=== PATIENT | male | born 2000 | race Caucasian/White ===

== ENCOUNTER 2020-11-06 21:57 | Emergency (ER) | payer OTHER ==
[2020-11-06 22:30] VITALS: BP 122/69; PULSE 85; RESP 18; TEMP 99
[2020-11-06] MEDS ORDERED: KETOROLAC 15 MG/ML 1 ML VIAL IM STA (23:06)
--- NOTE | 2020-11-06 23:17 | XR ---
EXAMINATION TYPE: XR ankle complete RT DATE OF EXAM: 11/06/2020 COMPARISON: NONE HISTORY: Ankle pain TECHNIQUE: 3 views FINDINGS: There is soft tissue swelling over the lateral malleolus. Ankle mortise is anatomic. I see no fracture. IMPRESSION: Soft tissue swelling. No fracture seen.
--- NOTE | 2020-11-06 23:27 | ED ---
Lower Extremity Injury HPI - General Chief Complaint: Extremity Injury, Lower Stated Complaint: RT ankle injury Time Seen by Provider: 11/06/20 22:37 Source: patient, RN notes reviewed Mode of arrival: wheelchair Limitations: no limitations - History of Present Illness Initial Comments: Patient is a 19-year-old male that presents to the emergency department complaining of right ankle pain. He notes that he stepped on his friend's foot and rolled his ankle. He notes that his pain is approximately a 7 out of 10. He notes that he does have full sensation and feeling in his right lower extremity. He notes that most of his pain is on the lateral aspect over the lateral malleoli. He denied any other issues or complaints at this time. Patient denied any chest pain shortness breath headache nausea vomiting diarrhea constipation fever fatigue chills. - Related Data Home Medications Medication Instructions Recorded Confirmed No Known Home Medications 01/24/15 01/24/15 Allergies Allergy/AdvReac Type Severity Reaction Status Date / Time No Known Allergies Allergy Verified 11/06/20 22:31 Review of Systems ROS Statement: Those systems with pertinent positive or pertinent negative responses have been documented in the HPI. ROS Other: All systems not noted in ROS Statement are negative. Past Medical History Past Medical History: No Reported History History of Any Multi-Drug Resistant Organisms: None Reported Past Surgical History: No Surgical Hx Reported Past Psychological History: No Psychological Hx Reported Smoking Status: Never smoker Past Alcohol Use History: None Reported Past Drug Use History: None Reported General Exam Limitations: no limitations General appearance: alert, in no apparent distress Head exam: Present: atraumatic, normocephalic, normal inspection Eye exam: Present: normal appearance, PERRL, EOMI. Absent: scleral icterus, conjunctival injection, periorbital swelling Neck exam: Present: normal inspection Respiratory exam: Present: normal lung sounds bilaterally. Absent: respiratory distress, wheezes, rales, rhonchi, stridor Cardiovascular Exam: Present: regular rate, normal rhythm, normal heart sounds. Absent: systolic murmur, diastolic murmur, rubs, gallop, clicks Right Ankle exam: Present: normal inspection, tenderness (Over the lateral malleoli and just superior the lateral malleoli.), swelling (Lateral malleoli), ecchymosis (Along the lateral aspect of the foot). Absent: full ROM (Secondary to pain), abrasion, laceration Neurological exam: Present: alert, oriented X3 Psychiatric exam: Present: normal affect, normal mood Skin exam: Present: warm, dry, intact, normal color. Absent: rash Course Vital Signs 11/06/20 22:26 Temperature 99.0 F Pulse Rate 85 Respiratory 18 Rate Blood Pressure 122/69 O2 Sat by Pulse 100 Oximetry Procedures - Orthopedic Splinting/Casting Injury #1 Side: right Lower Extremity Injury Location: ankle Lower Extremity Immobilizer: posterior splint, Leo wrap, synthetic pre-padded splint Other Orthopedic Equipment: crutches Medical Decision Making - Medical Decision Making 19-year-old male with right ankle pain after stepping on his friend's foot. X-ray the right ankle, 15 mg of Toradol ordered. X-ray negative for any acute fractures or dislocations. Case discussed with Dr. Haney, patient can discharge home with follow-up to orthopedist. - Radiology Data Radiology results: report reviewed, image reviewed X-ray of the right ankle: Soft tissue swelling, no fracture seen. Disposition Clinical Impression: Right ankle sprain Disposition: HOME SELF-CARE Condition: Stable Instructions (If sedation given, give patient instructions): Knee Sprain (ED) Additional Instructions: Please return to the Emergency Department if symptoms worsen or any other concerns. Follow-up with primary care as needed. Follow-up with orthopedist in the next several days Avoid any strenuous use and/or weightbearing of the right ankle. Take Tylenol and Motrin as needed for pain control. Is patient prescribed a controlled substance at d/c from ED?: No Referrals: None,Stated [Primary Care Provider] - 1-2 days Time of Disposition: 23:26
--- NOTE | 2020-11-06 23:40 | ED ---
Disposition Clinical Impression: Right ankle sprain Disposition: HOME SELF-CARE Condition: Stable Instructions (If sedation given, give patient instructions): Knee Sprain (ED) Additional Instructions: Please return to the Emergency Department if symptoms worsen or any other concerns. Follow-up with primary care as needed. Follow-up with orthopedist in the next several days Avoid any strenuous use and/or weightbearing of the right ankle. Take Tylenol and Motrin as needed for pain control. Is patient prescribed a controlled substance at d/c from ED?: No Referrals: None,Stated [Primary Care Provider] - 1-2 days Amy Estevez DO [Doctor of Osteopathic Medicine] - 1-2 days Time of Disposition: 23:40
== END 2020-11-07 00:06 | disposition home or self-care (01) ==
LOC: EC 21:57
DX: S93.401A Sprain of unspecified ligament of right ankle, initial encounter (principal); X50.1XXA Overexertion from prolonged static or awkward postures, initial encounter
CPT/HCPCS: 73610; 99283; 96372; 29515; J1885